=== PATIENT | male | born 1990 | race Caucasian/White ===

== ENCOUNTER 2017-10-16 22:18 | Emergency (ER) | payer SELFPAY ==
[~2017-10-16] VITALS: Ht 175.3 cm; Wt 61.4 kg
[2017-10-16 22:20] VITALS: BP 141/89; PULSE 113; RESP 16; TEMP 98; O2SAT 97
[2017-10-16] MEDS ORDERED: BUPIVACAINE HCL PF 0.5% 30 ML VIAL EPIDURAL ONE (23:45)
[2017-10-16] MEDS ORDERED: CLINDAMYCIN 600 MG/NS PREMIX 50 ML IV ONE (23:45)
[2017-10-16] MEDS ORDERED: LIDOCAINE HCL 1% 20 ML VIAL INFIL ONE (23:45)
--- NOTE | 2017-10-16 23:57 | RADRPT ---
EXAM DATE/TIME: 10/16/2017 23:49 [place] COMPARISON: No previous studies available for comparison. INDICATIONS : Pain in distal portion of 2nd digit on right hand. MEDICAL HISTORY : None. SURGICAL HISTORY : None. ENCOUNTER: Initial ACUITY: 1 day PAIN SCORE: 4/10 LOCATION: Right 2nd digit FINDINGS: Examination of the second digit of the right hand demonstrates no evidence of fracture or dislocation . No radiopaque foreign bodies are seen. Soft tissue swelling of the entire digit observed. CONCLUSION: Soft tissue swelling of the second digit. Adan Spence Jr., MD on October 16, 2017 at 23:55 Board Certified Radiologist. This report was verified electronically.
[2017-10-17 00:02] LABS: AUTOMATED NEUTROPHIL # 8.5 TH/MM3 (1.8-7.7); BASOPHIL # 0.1 TH/MM3 (0-0.2); BASOPHIL % 0.5 % (0.0-2.0); EOSINOPHIL # 0.4 TH/MM3 (0-0.4); EOSINOPHIL % 3.4 % (0.0-4.0); HEMOGLOBIN 13.3 GM/DL (13.0-17.0); LYMPH % 15.1 % (9.0-44.0); LYMPHOCYTE # 1.8 TH/MM3 (1.0-4.8); MEAN CORPUSCULAR HEMOGLOBIN 30.2 PG (27.0-34.0); MONO % 8.5 % (0.0-8.0); NEUT % 72.5 % (16.0-70.0); PLATELET COUNT 289 TH/MM3 (150-450); RED BLOOD COUNT 4.39 MIL/MM3 (4.50-5.90); RED CELL DISTRIBUTION WIDTH 13.4 % (11.6-17.2); WHITE BLOOD COUNT 11.7 TH/MM3 (4.0-11.0)
[2017-10-17 00:19] LABS: BICARBONATE 31.7 MEQ/L (21.0-32.0); CALCIUM 9.1 MG/DL (8.5-10.1); CREATININE 0.98 MG/DL (0.60-1.30)
[2017-10-17] MEDS ORDERED: CLIN150 PO (00:48)
[2017-10-17] MEDS ORDERED: PERC5TAB12 PO (00:48)
--- NOTE | 2017-10-17 00:54 | PD ---
HPI Chief Complaint: Skin Problem Time Seen by Provider: 23:26 Travel History International Travel<30 days: No Contact w/Intl Traveler<30days: No Traveled to known affect area: No History of Present Illness HPI 27-year-old [id number] white male presents from her department with complaints of right index finger swelling and pain. He states that he noticed some mild pain initially 5 days ago which has progressively worsened. 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 He does not recall any particular injury. Patient states that he had had cellulitis in another finger from poking it with a unclean needle. He states that it felt similar. Patient states the pain is severe. He denies any fever chills. No drainage. Worse with palpation and movement. No alleviating factors. PFSH Past Medical History Narrative Medical Cellulitis left hand Diminished Hearing: No Tetanus Vaccination: < 5 Years Influenza Vaccination: No Past Surgical History Surgical History: No Previous Surgery Social History Alcohol Use: No Tobacco Use: Yes (one pack per day) Substance Use: No Allergies-Medications (Allergen,Severity, Reaction): Coded Allergies: vancomycin (Verified Allergy, Intermediate, 10/16/17) Reported Meds & Prescriptions Reported Meds & Active Scripts Active Percocet (Oxycodone-Acetaminophen) 5-325 mg Tab 1 Tab PO Q4H PRN Cleocin (Clindamycin HCl) 150 Mg Cap 300 Mg PO Q6H 10 Days Review of Systems General / Constitutional: No: Fever Eyes: No: Visual changes HENT: No: Headaches Cardiovascular: No: Chest Pain or Discomfort Respiratory: No: Shortness of Breath Gastrointestinal: No: Abdominal Pain Genitourinary: No: Dysuria Musculoskeletal: Positive: Limited ROM, Edema, Pain Skin: No Rash Neurologic: No: Weakness, Paresthesia Psychiatric: No: Depression Endocrine: No: Polydipsia Hematologic/Lymphatic: No: Easy Bruising Physical Exam Narrative GENERAL: This is a well-nourished, well-developed patient, in no apparent distress. SKIN: No rashes, ecchymoses or lesions. Warm and dry. HEAD: Atraumatic. Normocephalic. EYES: PERRL, EOMI, no discharge or injection. No scleral icterus. EARS: Clear NOSE: Nasal turbinates appear normal. THROAT: Mucosa pink and moist. Airway patent. NECK: Trachea midline. supple, moves head freely. LUNGS: Clear to auscultation. CV: Regular in rhythm. ABDOMEN: Soft nontender. EXT: No clubbing cyanosis. Examination of the right hand reveals mild to moderate swelling of the index finger from the distal tip into the proximal phalanx. Patient has a area of induration to the volar pad consistent with a felon. Patient has intact gross sensation. No pain in the joints. Limited range of motion due to pain. Data Data Last Documented VS Vital Signs Date Time Temp Pulse Resp B/P (MAP) Pulse Ox O2 Delivery O2 Flow Rate FiO2 10/16/17 23:35 20 10/16/17 22:20 98.0 113 141/89 (106) 97 Orders Orders Complete Blood Count With Diff (10/16/17 23:33) Basic Metabolic Panel (Bmp) (10/16/17 23:33) Wound Culture And Gram Stain (10/16/17 23:33) Iv Access Insert/Monitor (10/16/17 23:33) Finger (Abs2gsd) (10/16/17 23:33) Bupivacaine Pf 0.5% Inj (Marcaine Pf 0.5 (10/16/17 23:45) Lidocaine 1% Inj (Xylocaine 1% Inj) (10/16/17 23:45) Clindamycin 600 Mg/Ns Premix (Cleocin 60 (10/16/17 23:45) Labs Laboratory Tests Test 10/16/17 23:50 White Blood Count 11.7 TH/MM3 Red Blood Count 4.39 MIL/MM3 Hemoglobin 13.3 GM/DL Hematocrit 39.0 % Mean Corpuscular Volume 89.0 FL Mean Corpuscular Hemoglobin 30.2 PG Mean Corpuscular Hemoglobin Concent 34.0 % Red Cell Distribution Width 13.4 % Platelet Count 289 TH/MM3 Mean Platelet Volume 6.0 FL Neutrophils (%) (Auto) 72.5 % Lymphocytes (%) (Auto) 15.1 % Monocytes (%) (Auto) 8.5 % Eosinophils (%) (Auto) 3.4 % Basophils (%) (Auto) 0.5 % Neutrophils # (Auto) 8.5 TH/MM3 Lymphocytes # (Auto) 1.8 TH/MM3 Monocytes # (Auto) 1.0 TH/MM3 Eosinophils # (Auto) 0.4 TH/MM3 Basophils # (Auto) 0.1 TH/MM3 CBC Comment DIFF FINAL Differential Comment Blood Urea Nitrogen 16 MG/DL Creatinine 0.98 MG/DL Random Glucose 113 MG/DL Calcium Level 9.1 MG/DL Sodium Level 140 MEQ/L Potassium Level 3.8 MEQ/L Chloride Level 103 MEQ/L Carbon Dioxide Level 31.7 MEQ/L Anion Gap 5 MEQ/L Estimat Glomerular Filtration Rate 90 ML/MIN [facility] Medical Decision Making Medical Screen Exam Complete: Yes Emergency Medical Condition: Yes Medical Record Reviewed: Yes Interpretation(s) CBC & BMP Diagram 10/16/17 23:50 Calcium Level 9.1 Last 24 hours Impressions Finger X-Ray 10/16/17 5705 Signed Impressions: Service Date/Time: Monday, October 16, 2017 23:49 - CONCLUSION: Soft tissue swelling of the second digit. Adan Spence Jr., MD Differential Diagnosis MDM: High Differential diagnoses: Abscess, folliculitis, cellulitis, lymphangitis, abrasion, contact dermatitis, felon Narrative Course IV access is obtained. Routine laboratory tests including CBC, chemistry, x- ray and wound culture have been obtained. X-ray reveals no foreign body. No bony involvement. Patient's tetanus status up-to-date. Patient is given clindamycin 600 mg IV. An incision and drainage has been performed. This is right index finger felon Procedures Procedure Narrative I&D abscess: After the risks and benefits were discussed the following procedure was performed. The skin is prepped and draped in the usual sterile fashion using Betadine. The abscess is anesthetized with 1% lidocaine and 0.5% Marcaine. After adequate anesthesia, an 11 blade scalpel is used to make a 1 centimeter central incision on either side of the finger. Perulant material is expressed and cultured. Loculations are broken up using curved Jelly forceps. The wound is cleansed deeply using dilute Betadine and peroxide on Q-tips. The wound is packed open through and through using iodoform gauze. A clean dressing is applied. The patient tolerated the procedure well. There was no complications. Follow-up instructions were given to the patient. Diagnosis Primary Impression: right index finger felon Referrals: Derrick Huerta III, MD 2 days Patient Instructions: General Instructions Departure Forms: Tests/Procedures, Work Release Special Instructions: No work 3 days. Additional Instructions: Rest. Elevation above the heart at all times. Keep clean and dry. Clindamycin and Percocet. Follow-up with Dr. Huerta the orthopedic hand surgeon in the next 2 days. Call his office first thing in the morning for an appointment. Return to the ER for any problems. Med/Other Pt SpecificInfo: Prescription(s) given Scripts Oxycodone-Acetaminophen (Percocet) 5-325 mg Tab 1 TAB PO Q4H Y for PAIN, #12 TAB 0 Refills Prov: Dora Capps MD 10/17/17 Clindamycin (Cleocin) 150 Mg Cap 300 MG PO Q6H for Infection for 10 Days, #80 CAP 0 Refills Prov: Dora Capps MD 10/17/17 Disposition: 01 DISCHARGE HOME Condition: Jack Zuniga Oct 17, 2017 00:54
== END 2017-10-17 01:33 | disposition home or self-care (01) ==
LOC: NEPD 22:18
DX: L03.011 Cellulitis of right finger (principal); B95.62 Methicillin resistant Staphylococcus aureus infection as the cause of diseases classified elsewhere; Z72.0 Tobacco use
CPT/HCPCS: 10061; 73140; 80048; 85025; 86403; 87070; 87186; 96365; 96366